=== PATIENT | female | born 1950 | race Caucasian/White ===

== ENCOUNTER 2024-03-26 09:13 | Outpatient (CLI) | payer MEDICARE, SELFPAY ==
--- NOTE | ~2024-03-26 | DEXA_ITS ---
Bone Density Report Name: RICKY MURRAY Age: 73 Sex: Female Ethnicity: White Date of : 1950 Indication: postmenopausal; screening for osteoporosis; hysterectomy; Referring Provider: UNKNOWN, UNKNOWN Study: Bone densitometry was performed. Exam Date: March 26, 2024 Accession number: [id number] Bone Density: Region BMD T-score Z-score Classification AP Spine(L1-L4) 1.152 1.0 3.3 Normal Femoral Neck (Left) 0.700 -1.3 0.7 Osteopenia Total Hip (Left) 0.937 0.0 1.7 Normal Femoral Neck (Right) 0.694 -1.4 0.6 Osteopenia Total Hip (Right) 0.897 -0.4 1.3 Normal Total Hip Mean 0.917 -0.2 1.5 Normal World Health Organization criteria for BMD impression classify patients as: Normal (T-score at or above -1.0), Osteopenia (T-score between -1.0 and -2.5), or Osteoporosis (T-score at or below -2.5). 10-year Fracture Risk(1): Major Osteoporotic Fracture 11% Hip Fracture 1.8% Reported Risk Factors: [place] (), Neck BMD=0.694, BMI=26.2 (1) FRAX(R) Version 3.08. Fracture probability calculated for an untreated patient. Fracture probability may be lower if the patient has received treatment. Previous Exams: Region Exam Age BMD T-score BMD Change BMD Change Date g/cm2 vs Baseline vs Previous AP Spine (L1-L4) 03/26/2024 73 1.152 1.0 0.033 (2.9%)* 0.039 (3.5%)# 05/22/2019 68 1.113 0.6 -0.006 (-0.6%) -0.006 (-0.6%) 07/08/2017 66 1.119 0.7 Total Hip(Left) 03/26/2024 73 0.937 0.0 0.024 (2.6%) 0.038 (4.2%)# 05/22/2019 68 0.900 -0.3 -0.014 (-1.5%) -0.014 (-1.5%) 07/08/2017 66 0.913 -0.2 Total Hip(Right) 03/26/2024 73 0.897 -0.4 -0.050 (-5.3%) -0.010 (-1.1%) 05/22/2019 68 0.907 -0.3 -0.040 (-4.2%) -0.040 (-4.2%) 07/08/2017 66 0.947 0.0 *Denotes significance at 95% confidence level, LSC for AP Spine = 0.022 g/cm2, LSC for Total Hip = 0.027 g/cm2 # Denotes dissimilar scan types or analysis methods Clinical Information Provided by Patient: Has used the following medications: Calcium Has the following medical conditions: Hysterectomy, parathyroid ectomy Patient maximum height was 65.5 Menopause Age: 48 Drinks caffeinated beverages Onset of menses at age 12 Number of children 3 Impression: The patient has low bone mass, based on the Right Femoral Neck T-score. The patient has an estimated ten-year risk of hip fracture of 1.8% and an estimated ten-year risk of major fracture of 11%, based on the WHO FRAX algorithm. No significant bone loss was observed. Discussion: BONE DENSITY IS LOW AT ONE OR MORE SKELETAL SITES. This patient's lowest T-score is low at one or more skeletal sites. It meets the World Health Organization's (WHO) criteria for ?low bone mass? (T-score between -1.0 and -2.5). The patient's 10-year risk of fracture as calculated by FRAX is less than the threshold where pharmacological therapy is recommended by the National Osteoporosis Foundation (NOF). However, all treatment decisions require clinical judgment and consideration of individual patient factors, including patient preferences, comorbidities, previous drug use, risk factors not captured in the FRAX model (e.g., frailty, falls, vitamin D deficiency, increased bone turnover, interval significant decline in bone density) and possible under or overestimation of fracture risk by FRAX. The patient should follow a healthful lifestyle (good nutrition with adequate calcium and vitamin D, and appropriate weight-bearing exercise). Follow-Up: Consider repeating this study in 2 to 3 years to reassess this patient's status, or sooner if there is some new clinical indication. Reported by: COOPER on 03/26/2024 9:47:00 AM. Reviewed, dictated and finalized at location [facility]
== END 2024-03-26 09:14 | disposition home or self-care (01) ==
LOC: ANHIMG 09:14
DX: M85.89 Other specified disorders of bone density and structure, multiple sites (principal); E21.0 Primary hyperparathyroidism; Z13.820 Encounter for screening for osteoporosis
CPT/HCPCS: 77080